=== PATIENT | female | born 1995 | race Caucasian/White ===

== ENCOUNTER 2017-05-01 16:34 | Emergency (ER) | payer SELFPAY ==
[~2017-05-01] VITALS: Ht 160 cm; Wt 78.0 kg
[2017-05-01 16:38] VITALS: BP 132/78; PULSE 86; RESP 16; TEMP 98; O2SAT 99
[2017-05-01] MEDS ORDERED: PROCHLORPERAZINE INJ 10 MG/2 ML VIAL IM ONE (18:45)
[2017-05-01] MEDS ORDERED: KETOROLAC TROMETHAMINE 60 MG/2 ML (IM) VIAL IM ONE (18:45)
[2017-05-01] MEDS ORDERED: PROMETHAZINE INJ 25 MG/ML VIAL IM ONE (18:45)
--- NOTE | 2017-05-01 18:47 | PD ---
HPI Chief Complaint: Headache Time Seen by Provider: 18:35 Travel History International Travel<30 days: No Contact w/Intl Traveler<30days: No Traveled to known affect area: No History of Present Illness HPI The patient was seen and examined in the presence of the nurse. This patient complains of headache. Duration is 3 days. Severity is moderate. She has nausea but no vomiting or fever or head injury. No thunderclap onset. She doesn't have any diagnosed headache problems. Limbs have no alleviating factors. No exacerbating factors. Pain is located primarily in the occiput bilaterally and some throbbing and aching. PFSH Social History Alcohol Use: No Tobacco Use: No Substance Use: No Allergies-Medications (Allergen,Severity, Reaction): Coded Allergies: No Known Allergies (Unverified , 05/01/17) Reported Meds & Prescriptions Reported Meds & Active Scripts Active Reported Proair Hfa 8.5 GM Inh (Albuterol Sulfate) 90 Mcg/Act Aer 1 Puff INH DIRECTED PRN 108 mcg/actuation Review of Systems General / Constitutional: No: Fever Eyes: No: Visual changes HENT: Positive: Headaches Cardiovascular: No: Chest Pain or Discomfort Respiratory: No: Shortness of Breath Gastrointestinal: Positive: Nausea, No: Abdominal Pain Genitourinary: No: Dysuria Musculoskeletal: No: Pain Skin: No Rash Neurologic: Positive: Headache, No: Weakness Psychiatric: No: Depression Endocrine: No: Polydipsia Hematologic/Lymphatic: No: Easy Bruising Physical Exam Narrative GENERAL: Well-nourished, well-developed patient in no apparent distress. SKIN: Focused skin assessment reveals no rash and nodules. Skin is Warm and dry. HEAD: Atraumatic. Normocephalic. EYES: Pupils equal and round. No scleral icterus. No injection or drainage. ENT: No nasal bleeding or discharge. Mucous membranes pink and moist. NECK: Trachea midline. No JVD. No meningeal signs CARDIOVASCULAR: Regular rate and rhythm. No murmur appreciated. RESPIRATORY: No accessory muscle use. Clear to auscultation. Breath sounds equal bilaterally. GASTROINTESTINAL: Abdomen soft, non-tender, nondistended. Hepatic and splenic margins not palpable. MUSCULOSKELETAL: No obvious deformities. No clubbing. No cyanosis. No edema. NEUROLOGICAL: Awake and alert. No obvious cranial nerve deficits. Motor grossly within normal limits. Normal speech. PSYCHIATRIC: Appropriate mood and affect; insight and judgment normal. Data Data Last Documented VS Vital Signs Date Time Temp Pulse Resp B/P (MAP) Pulse Ox O2 Delivery O2 Flow Rate FiO2 05/01/17 19:10 89 16 134/72 (92) 98 Room Air 05/01/17 16:38 98.0 Orders Orders Prochlorperazine Inj (Compazine Inj) (05/01/17 18:45) Ketorolac Inj (Toradol Inj) (05/01/17 18:45) Promethazine Inj (Phenergan Inj) (05/01/17 18:45) [facility] Medical Decision Making Medical Screen Exam Complete: Yes Emergency Medical Condition: Yes Medical Record Reviewed: Yes Differential Diagnosis Differential diagnosis includes migraine, tension headache, cluster headache, meningitis. Narrative Course I have reviewed the patient's electronic medical record. This patient looks clinically well and neurologically intact. I don't see any red flags for emergent brain imaging Presentation not consistent with subarachnoid hemorrhage I gave her injections of Toradol and Phenergan and Compazine. 193: I reevaluated the patient and she feels improved. I wrote her some medication for nausea and pain to use as needed Diagnosis Primary Impression: Headache Qualified Codes: R51 - Headache Additional Instructions: The patient was warned about potential sedation for the medications they will receive on prescription. The patient was advised to follow up with their physician and return if they worsen. Med/Other Pt SpecificInfo: Prescription(s) given Scripts Oduylbmbtf-Wkymbhkacomgu-Qhrqfszd (Fioricet) 50-300-40 Mg Cap 1 CAP PO Q4H Y for HEADACHE, #12 CAP 0 Refills Prov: Irvni Mary MD 05/01/17 Ondansetron (Zofran) 4 Mg Tab 4 MG PO Q6HR Y for NAUSEA OR VOMITING, #12 TAB 0 Refills Prov: Irvin Mary MD 05/01/17 Disposition: 01 DISCHARGE HOME Condition: Stable Irvin Mary MD May 01, 2017 18:47
[2017-05-01] MEDS ORDERED: ALBUAER3 INH (18:52)
[2017-05-01 19:10] VITALS: BP 134/72; PULSE 89; RESP 16; O2SAT 98
[2017-05-01] MEDS ORDERED: ZOFR4TAB PO (19:37)
[2017-05-01] MEDS ORDERED: BUTA1CAP PO (19:37)
[2017-05-01 19:40] VITALS: BP 130/77; TEMP 98.2
== END 2017-05-01 19:50 | disposition home or self-care (01) ==
LOC: PHED 16:34
DX: R51 Headache (principal); Z79.899 Other long term (current) drug therapy
CPT/HCPCS: 96372; 99283; J0780; J1885; J2550

== ENCOUNTER 2017-08-16 18:22 | Emergency (ER) | payer MEDICAID, OTHER ==
[~2017-08-16] VITALS: Ht 160 cm; Wt 77.8 kg
[~2017-08-16 18:22] MED LIST: ALBUAER3 INH; BUTA1CAP PO; ZOFR4TAB PO
[2017-08-16 18:30] VITALS: BP 123/57; PULSE 85; RESP 18; TEMP 98; O2SAT 97
--- NOTE | 2017-08-16 18:43 | PD ---
HPI Chief Complaint: ENT Complaint Time Seen by Provider: 18:37 Travel History International Travel<30 days: No Contact w/Intl Traveler<30days: No Traveled to known affect area: No History of Present Illness HPI 22-year-old female presents to the emergency department for evaluation of hoarse voice and sore throat for 3 days. She denies any fevers or chills. No other symptoms or complaints. Patient currently rates the pain 7/10, aching and throbbing to the throat without radiation. She has no chronic medical problems and takes no prescribed medications. Mild severity. PFSH Past Medical History Asthma: Yes ?: Unknown LMP: TWO WEEKS AGO Social History Alcohol Use: No Tobacco Use: No Substance Use: No Allergies-Medications (Allergen,Severity, Reaction): Coded Allergies: No Known Allergies (Unverified , 08/16/17) Reported Meds & Prescriptions Reported Meds & Active Scripts Active No Active Prescriptions or Reported Medications Review of Systems Except as stated in HPI: all other systems reviewed are Neg Physical Exam Narrative GENERAL: Well-nourished, well-developed female patient, ambulatory. Afebrile. SKIN: Focused skin assessment warm/dry. HEAD: Normocephalic. Atraumatic. ENT: Mucosa pink and moist. Bilateral tonsils are erythematous without exudates. No uvular edema. No uvular, palatal, or tonsillar deviation. Airway patent. Nasal turbinates appear normal without nasal blood, purulent drainage or septal hematoma. Bilateral tympanic membranes clear without erythema or perforation. EYES: No scleral icterus. No injection or drainage. NECK: Supple, trachea midline. No JVD or lymphadenopathy. CARDIOVASCULAR: Regular rate and rhythm without murmurs, gallops, or rubs. RESPIRATORY: Breath sounds equal bilaterally. No accessory muscle use. Lung sounds are clear to auscultation. GASTROINTESTINAL: Abdomen soft, non-tender, nondistended. MUSCULOSKELETAL: No cyanosis, or edema. BACK: Nontender without obvious deformity. No CVA tenderness. Data Data Last Documented VS Vital Signs Date Time Temp Pulse Resp B/P (MAP) Pulse Ox O2 Delivery O2 Flow Rate FiO2 08/16/17 18:30 98.0 85 18 123/57 (79) 97 Orders Orders Ed Urine Pregnancytest Poc (08/16/17 18:41) Group A Rapid Strep Screen (08/16/17 18:41) Strep Culture (Group A) (08/16/17 18:45) [facility] Medical Decision Making Medical Screen Exam Complete: Yes Emergency Medical Condition: Yes Medical Record Reviewed: Yes Differential Diagnosis Strep pharyngitis versus viral pharyngitis versus URI Narrative Course 22-year-old female presents to the emergency department for evaluation of sore throat and hoarse voice for 3 days. Strep swab is ordered and pending. Urine test is ordered and pending. Urine test is negative. Strep swab is negative. Patient will be discharged with a RX for Magic Mouthwash. She is to take Tylenol/Ibuprofen over the counter as needed for pain. She is to follow up with a primary care physician or return for any acute, worsening of symptoms. Diagnosis Primary Impression: Viral upper respiratory infection Referrals: Primary Care Physician call for appointment Patient Instructions: General Instructions, Upper Respiratory Infection (ED) Departure Forms: Tests/Procedures, Work Release Enter return to work date: August 19, 2017 Additional Instructions: Gtqr-dro-stnacmw Tylenol ibuprofen for pain. Use Magic mouthwash as needed Voice rest . Follow-up with a primary care physician. Return to the emergency department for any acute worsening of symptoms. Med/Other Pt SpecificInfo: Prescription(s) given Scripts Gfiixqla-Kcydwzpflgswjip-Uhpgxxikv Liq (Magic Mouthwash Adult Liq) 120 Ml Susp 10 ML SWISH-SWAL ACHS for Mouth sores, #120 ML 0 Refills Each 5mL contains: Nystatin 200,000units, Diphenhydramine 4.25mg, Viscous Lidocaine 10mg, Reynolds syrup 0.8 mL Prov: Gini Solomon 08/16/17 Disposition: 01 DISCHARGE HOME Condition: Stable Gini Solomon August 16, 2017 18:43
[2017-08-16] MEDS ORDERED: MAGICADU2 SWISH-SWAL (19:32)
== END 2017-08-16 20:05 | disposition home or self-care (01) ==
LOC: PHEFT 18:22
DX: J06.9 Acute upper respiratory infection, unspecified (principal); J45.909 Unspecified asthma, uncomplicated
CPT/HCPCS: 84703; 87081; 87880; 99283

== ENCOUNTER 2017-09-05 12:12 | Emergency (ER) | payer OTHER ==
[~2017-09-05] VITALS: Ht 160 cm; Wt 76.4 kg
[~2017-09-05 12:12] MED LIST changes: -ALBUAER3 INH; -BUTA1CAP PO; +MAGICADU2 SWISH-SWAL; -ZOFR4TAB PO
[2017-09-05 12:15] VITALS: BP 139/70; PULSE 102; RESP 16; TEMP 97.8; O2SAT 98
[2017-09-05] MEDS ORDERED: VENTAER INH (12:34)
[2017-09-05 12:49] LABS: BILIRUBIN, URINE NEG (NEG); BLOOD, URINE TRACE (NEG); GLUCOSE,URINE NEG (NEG); KETONE, URINE NEG (NEG); NITRITE,URINE NEG (NEG); URINE COLOR YELLOW (YELLW/STRAW); URINE LEUKOCYTE ESTERASE LARGE (NEG)
[2017-09-05] MEDS ORDERED: SODIUM CHLORIDE 0.9% FLUSH 10 ML FLUSH IV FLUSH PRN (13:00)
[2017-09-05 13:03] LABS: BACTERIA, URINE FEW /hpf; SQUAMOUS EPITHELIAL CELL URINE > 8 /hpf (0-5); WHITE BLOOD CELL CLUMPS FEW
[2017-09-05 13:05] VITALS: O2SAT 98
--- NOTE | 2017-09-05 13:36 | RADRPT ---
EXAM DATE: 09/05/2017 1:29 PM EDT AGE/SEX: 22 years / Female INDICATIONS: Suprapubic pain x 3 days. CLINICAL DATA: This is the patient's initial encounter. Patient reports that signs and symptoms have been present for 3 days and indicates a pain score of 8/10. MEDICAL/SURGICAL HISTORY: Asthma. None. RADIATION DOSE: 12.17 CTDI (mGy) COMPARISON: No prior exams available for comparison. TECHNIQUE: Multiple contiguous axial images were obtained through the abdomen. Images were obtained using multiple row detector helical technique. Using dose reduction techniques, radiation dose was ke pt as low as reasonably achievable to obtain optimal diagnostic quality images. FINDINGS: Lower Lungs: The visualized lower lungs are clear. Liver: The liver has a homogeneous density without space-occupying lesion. There is no dilation of th e biliary tree. Spleen: Homogeneous density without enlargement. Pancreas: Unremarkable without mass or calcification. Kidneys: Normal in size and shape. No evidence of mass or hydronephrosis. Adrenal Glands: Unremarkable. Aorta: The aorta and proximal iliac vessels are grossly unremarkable without aneurysmal dilation. Bowel/Mesentery: The bowel loops are grossly unremarkable. The cecum and sigmoid colon have a normal configuration. Abdominal Wall: Intact. Retroperitoneum: No evidence of adenopathy in the retrocrural, para-aortic, or deep pelvic regions. Bladder: Contours are smooth. Reproductive Organs: No abnormal masses or calcifications seen. Inguinal: The inguinal region is unremarkable without evidence of adenopathy. Bony Structures: Unremarkable. CONCLUSION: Negative CT Abdomen and Pelvis non contrast. Electronically signed by: Trever Fairchild MD 09/05/2017 1:34 PM EDT
--- NOTE | 2017-09-05 13:53 | PD ---
HPI Chief Complaint: Abdominal Pain Time Seen by Provider: 12:37 Travel History International Travel<30 days: No Contact w/Intl Traveler<30days: No Traveled to known affect area: No History of Present Illness HPI This is a 22-year-old female that comes in stating that she has no allergies to medications, she is not on any regular medications, she has no significant past surgical history and the only past medical history significant for asthma. She comes in complaining of suprapubic pain for the last 2-3 days that is also being affiliated with the beginning of her menses, she was unsure if to whether this was related to her menses are not. However the patient denies having any urgency/frequency/hematuria, diarrhea present. Rates it as pressure-like, nonradiating, 6 out of 10 in intensity, nonradiating PFSH Past Medical History Hx Anticoagulant Therapy: No Asthma: Yes Diminished Hearing: No Respiratory: Yes (ASTHMA) Immunizations Current: Yes Tetanus Vaccination: < 5 Years Influenza Vaccination: No ?: Not LMP: 2 weeks Past Surgical History Surgical History: No Previous Surgery Social History Alcohol Use: No Tobacco Use: No Substance Use: No Allergies-Medications (Allergen,Severity, Reaction): Coded Allergies: No Known Allergies (Unverified , 09/05/17) Reported Meds & Prescriptions Reported Meds & Active Scripts Active Ultram (Tramadol HCl) 50 Mg Tab 50 Mg PO Q8H PRN 3 Days Cipro (Ciprofloxacin HCl) 500 Mg Tab 500 Mg PO BID Reported Ventolin Hfa 18 GM Inh (Albuterol Sulfate) 90 Mcg/Act Aer 1 Puff INH Q4H PRN Review of Systems General / Constitutional: No: Fever Eyes: No: Visual changes HENT: No: Headaches Cardiovascular: No: Chest Pain or Discomfort Respiratory: No: Shortness of Breath Gastrointestinal: Positive: Abdominal Pain Genitourinary: No: Dysuria Musculoskeletal: No: Pain Skin: No Rash Neurologic: No: Weakness Psychiatric: No: Depression Endocrine: No: Polydipsia Hematologic/Lymphatic: No: Easy Bruising Physical Exam Narrative GENERAL: SKIN: Warm and dry. HEAD: Atraumatic. Normocephalic. EYES: Pupils equal and round. No scleral icterus. No injection or drainage. ENT: No nasal bleeding or discharge. Mucous membranes pink and moist. NECK: Trachea midline. No JVD. CARDIOVASCULAR: Regular rate and rhythm. RESPIRATORY: No accessory muscle use. Clear to auscultation. Breath sounds equal bilaterally. GASTROINTESTINAL: Abdomen soft, nondistended. Suprapubic tenderness to percussion MUSCULOSKELETAL: Extremities without clubbing, cyanosis, or edema. No obvious deformities. NEUROLOGICAL: Awake and alert. No obvious cranial nerve deficits. Motor grossly within normal limits. Five out of 5 muscle strength in the arms and legs. Normal speech. PSYCHIATRIC: Appropriate mood and affect; insight and judgment normal. Data Data Last Documented VS Vital Signs Date Time Temp Pulse Resp B/P (MAP) Pulse Ox O2 Delivery O2 Flow Rate FiO2 09/05/17 14:28 09/05/17 14:10 79 18 97 Room Air 09/05/17 12:15 97.8 Orders Orders Urinalysis - C+S If Indicated (09/05/17 12:14) Ed Urine Pregnancytest Poc (09/05/17 12:14) Ct Abd/Pel W/O Iv Contrast (09/05/17 12:53) Iv Access Insert/Monitor (09/05/17 12:53) Ecg Monitoring (09/05/17 12:53) Oximetry (09/05/17 12:53) Sodium Chloride 0.9% Flush (Ns Flush) (09/05/17 13:00) Ed Discharge Order (09/05/17 13:56) Ciprofloxacin (Cipro) (09/05/17 14:30) Ketorolac Inj (Toradol Inj) (09/05/17 14:30) Urine Culture (09/05/17 12:28) Labs Laboratory Tests Test 09/05/17 12:28 Urine Collection Type CLEAN CATCH Urine Color YELLOW Urine Turbidity SL CLOUDY Urine pH 7.0 Urine Specific [place] 1.010 Urine Protein TRACE mg/dL Urine Glucose (UA) NEG mg/dL Urine Ketones NEG mg/dL Urine Occult Blood TRACE Urine Nitrite NEG Urine Bilirubin NEG Urine Urobilinogen 0.2 MG/DL Urine Leukocyte Esterase LARGE Urine RBC 10-14 /hpf Urine WBC 50-99 /hpf Urine WBC Clumps FEW Urine Squamous Epithelial Cells > 8 /hpf Urine Bacteria FEW /hpf Microscopic Urinalysis Comment CULTURE INDICATED MDM Medical Decision Making Medical Screen Exam Complete: Yes Emergency Medical Condition: Yes Medical Record Reviewed: Yes Differential Diagnosis Appendectomy versus colitis versus diverticulitis versus UTI Narrative Course test negative UA consistent with a UTI CT abdomen and pelvis negative for any evidence of colitis, diverticulitis or appendicitis. Diagnosis Primary Impression: UTI Patient Instructions: General Instructions, Urinary Tract Infection in Women ( ED) Scripts Tramadol (Ultram) 50 Mg Tab 50 MG PO Q8H Y for PAIN for 3 Days, #12 TAB 0 Refills Prov: Gal Turner MD 09/05/17 Ciprofloxacin (Cipro) 500 Mg Tab 500 MG PO BID for Infection, #14 TAB 0 Refills Prov: Gal Turner MD 09/05/17 Disposition: 01 DISCHARGE HOME Condition: Stable Gal Turner MD Sep 05, 2017 13:53
[2017-09-05] MEDS ORDERED: TRAM50 PO (13:56)
[2017-09-05] MEDS ORDERED: CIPR-9 PO (13:56)
[2017-09-05 14:10] VITALS: BP 110/64; PULSE 79; RESP 18; O2SAT 97
[2017-09-05] MEDS ORDERED: CIPROFLOXACIN 500 MG TAB PO ONE (14:30)
[2017-09-05] MEDS ORDERED: KETOROLAC TROMETHAMINE 30 MG/ML (IVP) VIAL IV PUSH ONE (14:30)
== END 2017-09-05 14:36 | disposition home or self-care (01) ==
LOC: PHED 12:12
DX: N39.0 Urinary tract infection, site not specified (principal); J45.909 Unspecified asthma, uncomplicated
CPT/HCPCS: 74176; 81001; 84703; 87086; 96374; 99284; J1885